=== PATIENT | male | born 1965 | race Caucasian/White ===

== ENCOUNTER 2024-11-03 07:28 | Day surgery (SDC) | payer BC, OTHER ==
[2024-11-03] MEDS ORDERED: Midazolam 1 MG/ML 2 ML SDV IV ONE (07:29)
[2024-11-03] MEDS ORDERED: Propofol 200 MG/20 ML SDV IV ONE (07:29)
[2024-11-03] MEDS ORDERED: Phenylephrine 0.5% Nasal Spray 15 ML Bot NAS ONE (07:29)
[2024-11-03] MEDS ORDERED: Ketamine 500 mg/10 ML MDV IV ONE (07:29)
[2024-11-03] MEDS ORDERED: Sodium Chloride 0.9% 10 ML Syringe FLUSH PRN (07:30)
[2024-11-03] MEDS: Lactated Ringers 1,000 ML IV SCH (08:24)
[2024-11-03] MEDS: Simethicone Drops 40 MG/0.6 ML 30 ML Bottle ONE (09:14)
== END 2024-11-03 10:25 | disposition home or self-care (01) ==
LOC: FB.SDS 07:28
PROVIDERS: ATTEND Surgery
DX: Z12.11 Encounter for screening for malignant neoplasm of colon (principal); K57.30 Diverticulosis of large intestine without perforation or abscess without bleeding; I10 Essential (primary) hypertension; E78.5 Hyperlipidemia, unspecified; K21.9 Gastro-esophageal reflux disease without esophagitis; E66.9 Obesity, unspecified; Z68.32 Body mass index [BMI] 32.0-32.9, adult; Z79.899 Other long term (current) drug therapy; Z88.8 Allergy status to other drugs, medicaments and biological substances; Z87.891 Personal history of nicotine dependence
CPT/HCPCS: 00812; A9270-GY; J2250; J2704; J3490; J7120